=== PATIENT | female | born 2000 | race Caucasian/White ===

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

== ENCOUNTER 2018-11-22 07:26 | Emergency (ER) | payer OTHER ==
[~2018-11-22] VITALS: Ht 170.2 cm; Wt 102.5 kg
[2018-11-22 07:28] VITALS: Ht 170.2 cm; Wt 102.5 kg
[2018-11-22 08:20] LABS: CARBON DIOXIDE 23.9 mmol/L (21-32); CHLORIDE SERUM 108 mmol/L (98-107); CREATININE SERUM 0.9 mg/dL (0.6-1.0); GFR1 > 60 mL/min; GLUCOSE SERUM 99 mg/dL (74-106); PLATELET COUNT 188 x10^3mcL (130-400); POTASSIUM SERUM 4.1 mmol/L (3.5-5.1); RED CELL DISTRIBUTION WIDTH 12.5 % (11.5-14.5); SODIUM SERUM 140 mmol/L (136-145)
[2018-11-22 08:33] LABS: AMPHETAMINE QUAL UR NONE DETECTED (See below)
[2018-11-22 10:15] LABS: BAND NEUTROPHIL 7 % (0-10); MONOCYTE 6 % (0-7); SEGMENTED NEUTROPHILS 74 % (37-75); rbc morphology (normal/abnorm) NORMAL (NORMAL)
[2018-11-22 10:16] LABS: PLATELET MORPHOLOGY PLATELETS NORMAL
[2018-11-22 10:36] VITALS: BP 112/63
== END 2018-11-22 10:36 | disposition home or self-care (01) ==
LOC: ED 07:26
PROVIDERS: Emergency Medicine
DX: R07.89 Other chest pain (principal); J45.909 Unspecified asthma, uncomplicated; K21.9 Gastro-esophageal reflux disease without esophagitis; Z86.79 Personal history of other diseases of the circulatory system
CPT/HCPCS: 85378; J1885; J2060; J7030; Q0092

== ENCOUNTER 2018-11-28 04:12 | Emergency (ER) | payer OTHER ==
[~2018-11-28] VITALS: Ht 170.2 cm; Wt 101.6 kg
[2018-11-28 04:19] VITALS: BP 136/79; Ht 170.2 cm; Wt 101.6 kg
== END 2018-11-28 05:47 | disposition home or self-care (01) ==
LOC: ED 04:12
DX: H66.91 Otitis media, unspecified, right ear (principal); J40 Bronchitis, not specified as acute or chronic; J45.909 Unspecified asthma, uncomplicated; K21.9 Gastro-esophageal reflux disease without esophagitis; I44.1 Atrioventricular block, second degree
CPT/HCPCS: 36415; Q0092

== ENCOUNTER 2018-12-16 09:49 | Emergency (ER) | payer OTHER ==
[~2018-12-16] VITALS: Ht 170.2 cm; Wt 101.3 kg
[2018-12-16 12:20] VITALS: BP 116/70
== END 2018-12-16 12:20 | disposition home or self-care (01) ==
LOC: ED 09:49
DX: J06.9 Acute upper respiratory infection, unspecified (principal); K21.9 Gastro-esophageal reflux disease without esophagitis; J45.909 Unspecified asthma, uncomplicated